=== PATIENT | male | born 1945 | race Caucasian/White ===

== ENCOUNTER → 2018-01-02 | Day surgery (SDC) | payer MEDICARE, OTHER ==
[~2018-01-02] MED LIST: EPINEPHrine 1 MG/ML VIAL; LIDOCAINE 1% PF 2 ML VIAL. ID; LIDOCAINE 2% PF Vial for OR 5 ML VIAL.; ONDANSETRON PF 4 MG/2 ML VIAL. IV; PROCHLORPERAZINE 10 MG/2 ML VIAL. IV; PROPOFOL 20 ML IV; fentaNYL PF VIAL 100 MCG/2 ML VIAL IV
[2018-01-02] MEDS: IV RINGERS,LACTATED 1000ML 1,000 ML IV (12:30)
[2018-01-02] MEDS: ALBUTEROL SULFATE 2.5 MG/3 ML NEBU. IH (12:37)
== END | disposition home or self-care (01) ==
LOC: SURG 11:49
DX: R91.8 Other nonspecific abnormal finding of lung field (principal); Z88.1 Allergy status to other antibiotic agents; Z88.5 Allergy status to narcotic agent; J43.9 Emphysema, unspecified; Z87.01 Personal history of pneumonia (recurrent); N40.0 Benign prostatic hyperplasia without lower urinary tract symptoms; F17.200 Nicotine dependence, unspecified, uncomplicated
CPT/HCPCS: 31622; 31624; 87070; 87102; 87116; 87186; 87205; 88112; 94640; J0171; J2704; J7613

== ENCOUNTER 2019-02-01 08:32 | Emergency (ER) | payer MEDICARE, OTHER ==
[~2019-02-01] VITALS: Ht 167.6 cm; Wt 68.0 kg
[~2019-02-01 08:32] MED LIST changes: +ALBU0.63 NEB; +BUDE10.2 IH; +CEFU500T46 PO; +CIPR250T30 PO; +CITA20TA6 PO; -EPINEPHrine 1 MG/ML VIAL; +FINA5TAB PO; +FINA5TAB4 PO; +FLUT9.9S NS; -LIDOCAINE 1% PF 2 ML VIAL. ID; -LIDOCAINE 2% PF Vial for OR 5 ML VIAL.; +MONT10TA49 PO; -ONDANSETRON PF 4 MG/2 ML VIAL. IV; +PRED20TA PO; -PROCHLORPERAZINE 10 MG/2 ML VIAL. IV; -PROPOFOL 20 ML IV; +TAMS0.4C2 PO; +TAMS0.4C97 PO; +TIOT18CA IH; +VENTOLIN HFA18 GM INH; -fentaNYL PF VIAL 100 MCG/2 ML VIAL IV
[2019-02-01] MEDS ORDERED: IPRATROPIUM BROMIDE 0.5 MG/2.5 ML NEBU. NEB ONE (08:45)
[2019-02-01] MEDS ORDERED: ALBUTEROL SULFATE 2.5 MG/3 ML NEBU. CONT NEB ONE (08:45)
[2019-02-01] MEDS ORDERED: IPRATRPIUM/ALBUTEROL 0.5/2.5MG 3 ML NEBU. ONE ×2 (08:47→13:48)
--- NOTE | 2019-02-01 08:55 | PHYS DOC ---
Past Medical History Past Medical History: Anxiety, COPD, Other Additional Past Medical Histor: BPH Past Surgical History: No Surgical History Alcohol Use: None Drug Use: None Adult General Chief Complaint Chief Complaint: DYSPNEA/RESPIRATOY DISTRESS HPI HPI Patient is a 73 year old male with history of COPD, supplemental O2 dependent who presents with acute respiratory distress. Patient awoke this morning short of breath. Were his 3 L of oxygen at baseline. Initial O2 sat on EMS arrival was 91%, patient increase to 5 L. No breathing treatment given at home or during transfer. On exam, patient is tachypneic with pursed lip breathing with productive cough with yellow sputum. No reported fever chills nausea vomiting or sweats. History is limited due to patient's clinical condition.[] Review of Systems Review of Systems Review symptoms as per history of present illness. All other review symptoms are negative. All other systems were reviewed and found to be within normal limits, except as documented in this note. Current Medications Current Medications Current Medications Medications (Trade) Dose Ordered Sig/Pili Start Time Stop Time Status Last Admin Dose Admin Albuterol Sulfate (Ventolin Neb Soln) 10 mg 1X ONCE 02/01/19 08:45 02/01/19 08:51 DC 02/01/19 08:53 10 MG Albuterol/ Ipratropium (Duoneb) 3 ml STK-MED ONCE 02/01/19 08:47 02/01/19 08:48 DC Ipratropium [place] (Atrovent) 1 mg 1X ONCE 02/01/19 08:45 02/01/19 08:51 DC 02/01/19 08:55 1 MG Allergies Allergies Allergies Coded Allergies Type Severity Reaction Last Updated Verified Sulfa (Sulfonamide Antibiotics) Allergy Intermediate HIVES 01/02/18 Yes ciprofloxacin Allergy Intermediate PER PATIENT "MAKES ME NERVOUS" 07/24/15 Yes codeine Adverse Reaction Intermediate MAKES PT EXTREMELY NERVOUS 01/02/18 Yes Physical Exam Physical Exam Constitutional: Well developed, moderate respiratory distress. Hard of hearing. [] HENT: Normocephalic, atraumatic, bilateral external ears normal, oropharynx moist, no oral exudates, nose normal. [] Eyes: PERRLA, EOMI, conjunctiva normal, no discharge. [] Neck: Normal range of motion, no tenderness, supple, no stridor. [] Cardiovascular:Heart rate regular rhythm, no murmur [] Lungs & Thorax: Respirations labored, patient tripoding with pursed lip breathing, tachypnea, respiratory rate 30-35 breaths per minute, coarse diminished breath sounds bilaterally.[] Abdomen: Bowel sounds normal, soft, no tenderness. [] Skin: Warm, dry, no erythema, no rash. [] Back: No tenderness, no CVA tenderness. [] Extremities: Bruising right bicep and distribution of blood pressure Cuff. [] Neurologic: Alert and oriented, right facial droop with forehead involvement, sore throat, bilateral loss, cranial nerves II through XII otherwise intact, normal motor function, normal sensory function, nih stroke score of 4.. [] Psychologic: Affect anxious, judgement normal, mood normal. [] Current Patient Data Vital Signs Vital Signs Date Time Temp Pulse Resp B/P (MAP) Pulse Ox O2 Delivery O2 Flow Rate FiO2 02/01/19 09:00 99 Nasal Cannula 3.0 02/01/19 08:32 97.7 120 24 94/63 (73) 97.7 Lab Values Laboratory Tests Test 02/01/19 08:38 02/01/19 08:45 O2 Saturation 95 % (92-99) Arterial Blood pH 7.45 (7.35-7.45) Arterial Blood pCO2 at Patient Temp 42 mmHg (35-46) Arterial Blood pO2 at Patient Temp 83 mmHg (65-108) Arterial Blood HCO3 29 mmol/L (21-28) H Arterial Blood Base Excess 4 mmol/L (-3-3) H FiO2 30% pt was on 2.5l White Blood Count 15.9 x10^3/uL (4.0-11.0) H Red Blood Count 3.55 x10^6/uL (4.30-5.70) L Hemoglobin 10.5 g/dL (13.0-17.5) L Hematocrit 31.9 % (39.0-53.0) L Mean Corpuscular Volume 90 fL (79-100) Mean Corpuscular Hemoglobin 29 pg (25-35) Mean Corpuscular Hemoglobin Concent 33 g/dL (31-37) Red Cell Distribution Width 15.2 % (11.5-14.5) H Platelet Count 116 x10^3/uL (140-400) L Neutrophils (%) (Auto) 73 % (31-73) Lymphocytes (%) (Auto) 18 % (24-48) L Monocytes (%) (Auto) 8 % (0-9) Eosinophils (%) (Auto) 0 % (0-3) Basophils (%) (Auto) 1 % (0-3) Neutrophils # (Auto) 11.6 x10^3uL (1.8-7.7) H Lymphocytes # (Auto) 2.8 x10^3/uL (1.0-4.8) Monocytes # (Auto) 1.3 x10^3/uL (0.0-1.1) H Eosinophils # (Auto) 0.0 x10^3/uL (0.0-0.7) Basophils # (Auto) 0.1 x10^3/uL (0.0-0.2) Prothrombin Time 24.7 SEC (11.7-14.0) H Prothrombin Time INR 2.3 (0.8-1.1) H PTT 42 SEC (24-38) H Sodium Level 141 mmol/L (136-145) Potassium Level 3.5 mmol/L (3.5-5.1) Chloride Level 101 mmol/L (98-107) Carbon Dioxide Level 32 mmol/L (21-32) Anion Gap 8 (6-14) Blood Urea Nitrogen 32 mg/dL (8-26) H Creatinine 1.1 mg/dL (0.7-1.3) Estimated GFR (Cockcroft-Gault) 65.4 BUN/Creatinine Ratio 29 (6-20) H Glucose Level 101 mg/dL (70-99) H Calcium Level 8.5 mg/dL (8.5-10.1) Total Bilirubin 0.6 mg/dL (0.2-1.0) Aspartate Amino Transferase (AST) 18 U/L (15-37) Alanine Aminotransferase (ALT) 20 U/L (16-63) Alkaline Phosphatase 66 U/L (46-116) Troponin I Quantitative 0.188 ng/mL (0.000-0.055) ZF-Jax-K-Type Natriuretic Peptide 474 pg/mL (0-124) H Total Protein 6.8 g/dL (6.4-8.2) Albumin 3.5 g/dL (3.4-5.0) Albumin/Globulin Ratio 1.1 (1.0-1.7) Laboratory Tests 02/01/19 08:45 Laboratory Tests 02/01/19 08:45 EKG EKG [EKG: Reviewed] Radiology/Procedures Radiology/Procedures CT head: 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 (See chart for details) [ presents with acute COPD exacerbation with respiratory distress. Symptoms significantly improved with treatment. 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 2 onset was 3 days ago. Patient is also complaining of written headaches past 2 weeks worse with coughing. 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 Delay in obtaining CT head due to need to stabilize COPD prior to obtaining study. COPD stabilized. Dr. Mott at [facility] accepts to ER. Family members and patient's updated. Martine Disclaimer Martine Disclaimer This electronic medical record was generated, in whole or in part, using a voice recognition dictation system. Departure Departure Impression: Primary Impression: COPD (chronic obstructive pulmonary disease) with acute bronchitis Additional Impression: Cerebral aneurysm rupture Disposition: 02 TRANSFER [facility] Condition: GUARDED Referrals: YASH SANCHEZ MD (PCP) Problem Qualifiers JAMESON GARSIA DO Feb 01, 2019 08:55
[2019-02-01 09:00] LABS: BASO # 0.1 x10^3/uL (0.0-0.2); BASO % 1 % (0-3); EOS % 0 % (0-3); HEMATOCRIT 31.9 % (39.0-53.0); HEMOGLOBIN 10.5 g/dL (13.0-17.5); LYMPH # 2.8 x10^3/uL (1.0-4.8); LYMPH % 18 % (24-48); MEAN CORPUSCULAR HEMOGLOBIN 29 pg (25-35); MEAN CORPUSCULAR HGB CONC 33 g/dL (31-37); MEAN CORPUSCULAR VOLUME 90 fL (79-100); MONO # 1.3 x10^3/uL (0.0-1.1); MONO % 8 % (0-9); NEUT # 11.6 x10^3uL (1.8-7.7); NEUT % 73 % (31-73); PLATELET COUNT 116 x10^3/uL (140-400); RED BLOOD COUNT 3.55 x10^6/uL (4.30-5.70); RED CELL DISTRIBUTION WIDTH 15.2 % (11.5-14.5); WHITE BLOOD COUNT 15.9 x10^3/uL (4.0-11.0)
--- NOTE | 2019-02-01 09:01 | RAD ---
AP chest. HISTORY: Short of air AP view was taken of the chest. There are chronic interstitial changes in the lungs. There is a linear zone of atelectasis or infiltrate on the right. Heart is normal in size. There are changes of chronic obstructive pulmonary disease. There is no effusion or heart failure. IMPRESSION: 1. COPD and fibrosis. 2. Linear atelectasis or infiltrate in the right lung. Electronically signed by: Marvin Min MD (02/01/2019 8:58 AM) [id number]
[2019-02-01 09:09] LABS: CALCIUM 8.5 mg/dL (8.5-10.1); CREATININE 1.1 mg/dL (0.7-1.3); GFR 65.4; POTASSIUM 3.5 mmol/L (3.5-5.1)
[2019-02-01 09:14] LABS: ALBUMIN 3.5 g/dL (3.4-5.0); ALBUMIN/GLOBULIN RATIO 1.1 (1.0-1.7); TOTAL BILIRUBIN 0.6 mg/dL (0.2-1.0); TOTAL PROTEIN 6.8 g/dL (6.4-8.2)
[2019-02-01 10:18] LABS: BASE EXCESS ABG 4 mmol/L (-3-3); HCO3 ABG 29 mmol/L (21-28); PCO2 ABG 42 mmHg (35-46); PO2 ABG 83 mmHg (65-108); SAT O2 ABG 95 % (92-99)
[2019-02-01] MEDS ORDERED: methylPREDNISolone SOD SUCC PF 125 MG/2 ML VIAL. IV ONE (10:30)
--- NOTE | 2019-02-01 10:41 | EKG ---
[facility] [address] [place] [address] Test Date: 2019-02-01 Test Time: 09:34:34 Pat Name: DEEPAK RASMUSSEN Department: Room: Gender: M [employer]: : 1945 Requested By: JAMESON GARSIA Order Number: [id number] Reading MD: Measurements Intervals [place] Rate: 106 P: 49 [place]: 134 QRS: 46 QRSD: 86 T: 69 QT: 338 QTc: 450 Interpretive Statements SINUS TACHYCARDIA NON SPECIFIC T ABNORMALITY BORDERLINE ECG No previous ECG available for comparison
[2019-02-01 10:47] LABS: FIO2 ABG 30% PT WAS ON 2.5L
[2019-02-01 11:35] LABS: BILIRUBIN,URINE NEGATIVE (NEG); CLARITY,URINE CLEAR; COLOR,URINE YELLOW; NITRITE,URINE NEGATIVE (NEG); PH,URINE 6.5; PROTEIN,URINE NEGATIVE (NEG-TRACE); UROBILINOGEN,URINE 0.2 mg/dL (0.2 mg/dL)
[2019-02-01 11:48] LABS: BACTERIA,URINE 0 /HPF (0-FEW); RBC,URINE 0 /HPF (0-2); SQUAMOUS EPITHELIAL CELL,UR FEW /LPF; WBC,URINE 0 /HPF (0-4)
--- NOTE | 2019-02-01 12:43 | RAD ---
Examination: CT HEAD WO CONTRAST History: Right-sided facial droop Comparison/Correlation: None Findings: Axial images of the head were obtained without contrast. Acute hemorrhage within the dependent aspect of the occipital horns of the lateral ventricles is noted. There is a 1.4 cm by by 1.2 cm hyperdense ovoid mass. Atrophy and chronic ischemic changes white matter noted. No midline shift. Bony structures are unremarkable. Partial opacification of the left sphenoid sinus noted. Cavernous carotid calculation noted. 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 Hemorrhage presumably originating from the aneurysm is noted bilaterally within the occipital horns of the lateral ventricles in dependent location. Discussed with Dr. Bear of the emergency Department on 02/01/2019 at 12:39 PM. PQRS Compliance Statement: One or more of the following individualized dose reduction techniques were utilized for this examination: 1. Automated exposure control 2. Adjustment of the mA and/or kV according to patient size 3. Use of iterative reconstruction technique Electronically signed by: Russ Adams MD (02/01/2019 12:40 PM) [facility]
[2019-02-01] MEDS ORDERED: ONDANSETRON PF 4 MG/2 ML VIAL. IV ONE (13:00)
[2019-02-01] MEDS ORDERED: fentaNYL PF VIAL 100 MCG/2 ML VIAL IV ONE (13:00)
[2019-02-01 13:41] LABS: PROTHROMBIN TIME PATIENT 24.7 SEC (11.7-14.0)
[2019-02-01 13:47] VITALS: BP 94/65
== END 2019-02-01 13:55 | disposition short-term general hospital (02) ==
LOC: ER 08:32 → 6 SOUTH 10:00 → UNDOADMIN 10:00 → ER 13:55
DX: J44.0 Chronic obstructive pulmonary disease with (acute) lower respiratory infection (principal); J20.9 Acute bronchitis, unspecified; I60.7 Nontraumatic subarachnoid hemorrhage from unspecified intracranial artery; F41.9 Anxiety disorder, unspecified; Z99.81 Dependence on supplemental oxygen; Z79.899 Other long term (current) drug therapy; Z88.2 Allergy status to sulfonamides; Z88.5 Allergy status to narcotic agent; Z88.1 Allergy status to other antibiotic agents
CPT/HCPCS: 36415; 36600; 70450; 71045; 80053; 81001; 82805; 83880; 84484; 85025; 85610; 85730; 93005; 94644; 96374; 96375; 99285; J2930; J3010; J7613; J7644